=== PATIENT | female | born 1930 | race Caucasian/White ===

== ENCOUNTER 2018-10-10 13:25 | Inpatient (IN) | payer MEDICARE ==
[~2018-10-10] VITALS: Ht 152.4 cm; Wt 101.3 kg
[~2018-10-10 13:25] MED LIST: GLIM1TAB PO; LEVO175T2 PO; METO25TA35 PO; TRAM50TA2 PO
--- NOTE | 2018-10-10 13:30 | NUR ---
PT BIB [facility] AFTER PT BECAME NONVERBAL WITH RIGHT SIDED NEGLECT PER STAFF. PT WAS GIVEN 5 MG OF VERSED CORRESPONDENT FOR SZ ACTIVITYLASTING ABOUT 30 SECONDS PER [facility]. PT TO CT FOR CODE NEURO AFTER DR. TOUSSAINT ASSESSED PT IN ROOM FOR POSSIBLE INTUBATION.
--- NOTE | 2018-10-10 13:50 | NUR ---
PT BACK FROM [facility], PT'S SON AT BEDSIDE AND COMMNETED PT HAD HX OF SZ ABOUT 8-10 YEARS AGO AND NOT PLACED ON ANY ANTI SEIZURE MEDEICATIONS. PT PLACED ON MONITOR AND GIVEN WARM BALNKETS. HOB AT 30 DEGREES.
[2018-10-10 13:51] LABS: MEAN CORPUSCULAR HEMOGLOBIN 24.6 pg (27.0-34.8); MEAN CORPUSCULAR HGB CONC 32.8 g/dL (32.4-35.8); MEAN CORPUSCULAR VOLUME 74.9 fL (80-100); MEAN PLATELET VOLUME 8.4 fL (7.4-10.4); PLATELET COUNT 297 x10^3/uL (130-400); RED BLOOD COUNT 5.74 x10^6/uL (3.82-5.3); RED CELL DISTRIBUTION WIDTH 26.6 % (9.6-15.2)
[2018-10-10 14:02] LABS: INTERNATIONAL NORMALIZED RATIO 0.95 (0.93-1.1); PROTHROMBIN TIME 10.1 Seconds (9.6-11.5)
[2018-10-10] MEDS ORDERED: OMNIPAQUE 350 MG/ML, 100ML BOTTLE ONE (14:05)
--- NOTE | 2018-10-10 14:19 | NUR ---
BP 195/121. DR. TOUSSAINT AWARE OF BP.
[2018-10-10 14:22] LABS: BASOPHILS # (AUTO) 0.05 x10^3/uL (0-0.1); BASOPHILS % (AUTO) 0 % (0-1); EOSINOPHILS # (AUTO) 0.16 x10^3/uL (0-0.4); EOSINOPHILS % (AUTO) 1 % (1-7); LYMPHOCYTES # (AUTO) 3.31 x10^3/uL (1-3.4); LYMPHOCYTES % (AUTO) 30 % (22-44); MD MORPH REVIEW ONLY; MONOCYTES # (AUTO) 0.31 x10^3/uL (0.2-0.8); MONOCYTES % (AUTO) 3 % (2-9); NEUTROPHILS # (AUTO) 7.16 x10^3/uL (1.8-6.8); NEUTROPHILS % (AUTO) 65 % (42-75)
[2018-10-10 14:24] LABS: ANISOCYTOSIS 2+
[2018-10-10 14:25] LABS: <PLATELET ESTIMATE> ADEQUATE; <PLT MORPHOLOGY> NORMAL PLT MORPH; MICROCYTOSIS 1+; OVALOCYTES 1+; POLYCHROMASIA 1+
[2018-10-10] MEDS ORDERED: LABETALOL 5MG/ML, 20ML IVPush ONE (14:30)
[2018-10-10] MEDS ORDERED: LEVETIRACETAM 1,000 MG in SODIUM CHLORIDE 0.9% 100 ML IV ONE (14:30)
[2018-10-10 14:32] LABS: FREE T4 (FREE THYROXINE) 0.88 ng/dL (0.76-1.46)
[2018-10-10] MEDS ORDERED: LORazepam 2 MG/ML, 1ML ONE (14:37)
--- NOTE | 2018-10-10 14:37 | NUR ---
PT HAS EYES OPEN WITH BOTH EYES TWITCHING. PT BEGAN TO MOVE ALL EXTREMITIES MINIMALLY. DR. TOUSSAINT AT BEDSIDE AND ATIVAN TO BE GIVEN.
--- NOTE | 2018-10-10 14:50 | NUR ---
PT SNORING AFTER ATIVAN. O2 SAT IS 95% ON NRB AT [address] TOUSSAINT PT WILL BE INTUBATED IF O2 SAT DROPS.
[2018-10-10] MEDS ORDERED: LORazepam 2 MG/ML, 1ML IVPush ONE (15:00)
[2018-10-10] MEDS ORDERED: LEVO200T5 PO (15:16)
[2018-10-10] MEDS ORDERED: SODIUM CHLORIDE FLUSH 10ML SYR IVF PRN (15:30)
--- NOTE | 2018-10-10 15:31 | NUR ---
DR. CERDA AT BEDSIDE. BP 181/110. MORE LABETALOL REQUESTED OF DR. TOUSSAINT.
--- NOTE | 2018-10-10 15:40 | NUR ---
PT MOVING RIGHT ARM ATTEMPTING TO REMOVE NRB MASK. NPA REMOVED FROM LEFT NARE. PT TOLERATED WELL.
--- NOTE | 2018-10-10 15:45 | NUR ---
PER DR. CERDA NO ORDERS NEEDED TO BE COMPLETED PRIOR TO TRANSPORT TO CCU. PER DR. TOUSSAINT BP DID NOT NEED TO BE TREATED PRIOR TO TRANSPORT TO CCU.
[2018-10-10] MEDS ORDERED: ENALAPRILAT 1.25 MG/ML, 2ML IVPush PRN (16:00)
[2018-10-10] MEDS ORDERED: ACETAMINOPHEN 325 MG TABLET PO PRN (16:00)
[2018-10-10] MEDS ORDERED: BISACODYL 10 MG SUPP PR PRN (16:00)
[2018-10-10] MEDS ORDERED: ONDANSETRON 2MG/ML, 2ML IVPush PRN (16:00)
[2018-10-10] MEDS ORDERED: POLYETHYLENE GLYCOL 17 GM PACKET PO PRN (16:00)
[2018-10-10] MEDS ORDERED: LABETALOL 5MG/ML, 20ML IVPush PRN (16:00)
[2018-10-10] MEDS ORDERED: ONDANSETRON ODT 4 MG PO PRN (16:00)
[2018-10-10] MEDS: SODIUM CHLORIDE 0.9% 1,000 ML IV SCH (16:41)
[2018-10-10] MEDS: CEFTRIAXONE PMX 1GM/50ML 50 ML IV SCH (16:42)
[2018-10-10] MEDS ORDERED: LEVOTHYROXINE 100 MCG INJ IVPush ONE (17:00)
[2018-10-10] MEDS: ENOXAPARIN 30 MG/0.3 ML SQ SCH (17:19)
[2018-10-10] MEDS: INSULIN LISPRO 100 UNITS/ML, PEN SQ-INSULIN SCH ×2 (17:20→22:14)
[2018-10-10] MEDS: DOXYCYCLINE 100 MG in DEXTROSE 5% 250 ML IV SCH (17:20)
[2018-10-10 17:29] LABS: MICROSCOPIC INDICATED
[2018-10-10 17:59] LABS: CULTURE INDICATED? NO
[2018-10-10] MEDS ORDERED: METF500T17 PO (18:11)
[2018-10-10] MEDS ORDERED: CHOL-6 PO (18:11)
[2018-10-10] MEDS ORDERED: LISI10TA2 PO (18:11)
[2018-10-10 18:19] VITALS: BP 167/93
[2018-10-11] MEDS: SODIUM CHLORIDE 0.9% 1,000 ML IV SCH ×2 (01:34→13:09)
[2018-10-11] MEDS: ENOXAPARIN 30 MG/0.3 ML SQ SCH ×2 (04:16→16:28)
[2018-10-11] MEDS: DOXYCYCLINE 100 MG in DEXTROSE 5% 250 ML IV SCH ×2 (04:16→19:48)
[2018-10-11 04:29] LABS: ALANINE AMINOTRANSFERASE 12 U/L (12-78); ALBUMIN 2.7 g/dL (3.4-5.0); ANION GAP 7 mmol/L (5-15); CALCIUM 7.5 mg/dL (8.5-10.1); CHLORIDE 106 mmol/L (98-107); CREATININE 1.03 mg/dL (0.55-1.02)
[2018-10-11 04:30] VITALS: BP 97/52
[2018-10-11 04:32] LABS: ALKALINE PHOSPHATASE 70 U/L (45-117); BILIRUBIN,TOTAL 0.6 mg/dL (0.2-1.0); TOTAL PROTEIN 5.9 g/dL (6.4-8.2)
[2018-10-11 04:36] LABS: MEAN CORPUSCULAR HEMOGLOBIN 24.6 pg (27.0-34.8); MEAN CORPUSCULAR HGB CONC 32.8 g/dL (32.4-35.8); MEAN CORPUSCULAR VOLUME 75.1 fL (80-100); MEAN PLATELET VOLUME 8.5 fL (7.4-10.4); PLATELET COUNT 270 x10^3/uL (130-400); RED BLOOD COUNT 4.66 x10^6/uL (3.82-5.3); RED CELL DISTRIBUTION WIDTH 27.3 % (9.6-15.2)
[2018-10-11 05:09] LABS: BASOPHILS # (AUTO) 0.05 x10^3/uL (0-0.1); BASOPHILS % (AUTO) 1 % (0-1); EOSINOPHILS # (AUTO) 0.08 x10^3/uL (0-0.4); EOSINOPHILS % (AUTO) 1 % (1-7); LYMPHOCYTES % (AUTO) 31 % (22-44); MD MORPH REVIEW ONLY; MONOCYTES # (AUTO) 0.67 x10^3/uL (0.2-0.8); MONOCYTES % (AUTO) 6 % (2-9); NEUTROPHILS # (AUTO) 6.71 x10^3/uL (1.8-6.8); NEUTROPHILS % (AUTO) 62 % (42-75)
[2018-10-11 05:10] LABS: <PLATELET ESTIMATE> ADEQUATE; <PLT MORPHOLOGY> NORMAL PLT MORPH; ANISOCYTOSIS 1+; MICROCYTOSIS 1+; OVALOCYTES 1+; POLYCHROMASIA 1+
[2018-10-11] MEDS: INSULIN LISPRO 100 UNITS/ML, PEN SQ-INSULIN SCH ×4 (07:00→21:37)
[2018-10-11] MEDS: SENNA/DOCUSATE TABLET PO SCH (07:22)
[2018-10-11] MEDS: LEVETIRACETAM 1,000 MG in SODIUM CHLORIDE 0.9% 100 ML IV SCH ×2 (07:37→21:37)
[2018-10-11] MEDS: LEVOTHYROXINE 100 MCG INJ IVPush SCH (07:55)
[2018-10-11] MEDS: INSULIN GLARGINE 100 UNITS/ML, PEN SQ-INSULIN SCH ×2 (09:00→21:37)
--- NOTE | 2018-10-11 11:23 | NUR ---
REC: regular NCS diet with thin liquids Addendum: 10/11/18 at 1123 by Gissel LOPEZ Amended: Links added.
[2018-10-11 11:51] VITALS: BP 164/80
[2018-10-11 12:41] VITALS: BP 158/87
[2018-10-11] MEDS: CEFTRIAXONE PMX 1GM/50ML 50 ML IV SCH (18:36)
[2018-10-11 19:23] VITALS: BP 143/80
[2018-10-12 02:00] VITALS: BP 114/68
[2018-10-12] MEDS: SODIUM CHLORIDE 0.9% 1,000 ML IV SCH ×2 (02:08→15:58)
[2018-10-12] MEDS: ENOXAPARIN 30 MG/0.3 ML SQ SCH (04:24)
[2018-10-12 06:54] VITALS: BP 154/96
[2018-10-12] MEDS: LEVETIRACETAM 1,000 MG in SODIUM CHLORIDE 0.9% 100 ML IV SCH (08:32)
[2018-10-12] MEDS: SENNA/DOCUSATE TABLET PO SCH (08:37)
[2018-10-12] MEDS: LEVOTHYROXINE 100 MCG INJ IVPush SCH (08:38)
[2018-10-12] MEDS: INSULIN LISPRO 100 UNITS/ML, PEN SQ-INSULIN SCH ×3 (08:38→16:00)
[2018-10-12] MEDS: DOXYCYCLINE 100 MG in DEXTROSE 5% 250 ML IV SCH (08:52)
[2018-10-12] MEDS: INSULIN GLARGINE 100 UNITS/ML, PEN SQ-INSULIN SCH (11:31)
[2018-10-12] MEDS ORDERED: LEVE500T53 PO (11:46)
[2018-10-12 13:25] LABS: FREE T4 (FREE THYROXINE) 0.96 ng/dL (0.76-1.46); THYROID STIMULATING HORMONE 31.4 mIU/L (0.358-3.740)
[2018-10-12] MEDS ORDERED: DOXY100T PO (14:14)
[2018-10-12] MEDS ORDERED: CEFD300C37 PO (14:14)
[2018-10-12] MEDS ORDERED: GADOBUTROL 10 MMOL/10 ML PFS ONE (16:14)
[2018-10-12] MEDS: CEFTRIAXONE PMX 1GM/50ML 50 ML IV SCH (17:30)
[2018-10-13] MEDS ORDERED: ENOXAPARIN 30 MG/0.3 ML SQ SCH (04:00)
== END 2018-10-12 19:01 | disposition home or self-care (01) | DRG 100 ==
LOC: MERGE 13:25 → EDBD 13:25 → ED 14:30 → EDIP 15:09 → CCU 15:52 → 4WST 10-11 11:35
PROVIDERS: ADMIT Internal Medicine; ATTEND Internal Medicine
PROC: 0T9B70Z Drainage of Bladder with Drainage Device, Via Natural or Artificial Opening (ICD-10-PCS; principal; 2018-10-10)
DX: G40.901 Epilepsy, unspecified, not intractable, with status epilepticus (principal); J18.1 Lobar pneumonia, unspecified organism; E03.5 Myxedema coma; J96.00 Acute respiratory failure, unspecified whether with hypoxia or hypercapnia; E87.1 Hypo-osmolality and hyponatremia; R47.01 Aphasia; E03.9 Hypothyroidism, unspecified; G90.8 Other disorders of autonomic nervous system; E11.9 Type 2 diabetes mellitus without complications; G93.89 Other specified disorders of brain; I10 Essential (primary) hypertension; I65.02 Occlusion and stenosis of left vertebral artery; I65.21 Occlusion and stenosis of right carotid artery; Z66 Do not resuscitate; Z85.850 Personal history of malignant neoplasm of thyroid; Z86.73 Personal history of transient ischemic attack (TIA), and cerebral infarction without residual deficits; Z90.49 Acquired absence of other specified parts of digestive tract; Z91.14 Patient's other noncompliance with medication regimen; Z91.19 Patient's noncompliance with other medical treatment and regimen; Z79.899 Other long term (current) drug therapy
CPT/HCPCS: 36415; 36600; 70450; 70496; 70498; 70553; 71045; 80047; 80053; 81001; 82533; 82728; 82803; 82962; 83540; 83550; 83735; 84100; 84439; 84443; 84481; 84484; 85025; 85610; 85730; 87040; 87081; 93005; 95819; 96374; 96375; 99291; 99292; A9585; G0378; J0696; J1650; J1953; J7060; Q9967; J1815; J2060; J7030

== ENCOUNTER 2018-10-16 03:56 | Emergency (ER) | payer MEDICARE ==
[~2018-10-16] VITALS: Ht 157.5 cm; Wt 100.0 kg
[~2018-10-16 03:56] MED LIST changes: +CEFD300C37 PO; +CHOL-6 PO; +DOXY100T PO; +LEVE500T53 PO; +LEVO200T5 PO; +LISI10TA2 PO; +METF500T17 PO
--- NOTE | 2018-10-16 04:29 | NUR ---
88 Y/O FEMALE BIB [facility] FOR SUDDEN ONSET OF DIZZINESS. PT STATES SHE WOKE UP AND BECAME DIZZY, DESCRIBED IT "ROOM IS SPINNING". DENIED ANY N/V, SOB, CHEST PAIN. PT DENIES ANY COMPLAINTS UPON ARRIVAL TO THE ER. SHE IS ALERT AND ORIENTED, GCS OF 15. EKG COMPLETE, MONITORING EQUIPMENT APPLIED. ALL VITALS STABLE. NSR ON THE MONITOR. NO ECTOPY NOTED. HX OF HTN, HYPOTHYROIDISM, DIABETES. FSBS 113. PT DENIES ANY COMPLAINTS AT THIS TIME, WILL CONTINUE TO MONITOR.
[2018-10-16 05:31] LABS: ALBUMIN 3.4 g/dL (3.4-5.0); ANION GAP 6 mmol/L (5-15); CALCIUM 8.4 mg/dL (8.5-10.1); CHLORIDE 108 mmol/L (98-107)
[2018-10-16 05:35] LABS: CREATININE 1.01 mg/dL (0.55-1.02); T4 (THYROXINE) 11.9 mcg/dL (4.8-13.9); TROPONIN I < 0.015 ng/mL (0.000-0.045)
--- NOTE | 2018-10-16 06:00 | NUR ---
PT RESTING ON STRETCHER, NO DISTRESS NOTED, STATES NO LONGER DIZZY, DENIES ANY PAIN OR SOB. LAB AT FOR REDRAW
--- NOTE | 2018-10-16 06:25 | NUR ---
ROAD TESTED PT, STATED SHE FELT LIKE HER LEGS MIGHT GIVE OUT, FELT BETTER WHEN BACK ON STRETCHER. UPDATED
[2018-10-16 06:26] LABS: MEAN CORPUSCULAR HEMOGLOBIN 24.6 pg (27.0-34.8); MEAN CORPUSCULAR HGB CONC 32.5 g/dL (32.4-35.8); MEAN CORPUSCULAR VOLUME 75.8 fL (80-100); MEAN PLATELET VOLUME 8.1 fL (7.4-10.4); PLATELET COUNT 273 x10^3/uL (130-400); RED BLOOD COUNT 4.72 x10^6/uL (3.82-5.3)
[2018-10-16] MEDS ORDERED: ASPIRIN 81 MG TABLET CHEW PO ONE (06:30)
[2018-10-16] MEDS ORDERED: ASPIRIN 81 MG TABLET CHEW ONE ×2 (06:35→06:37)
[2018-10-16 07:36] LABS: MD MORPH REVIEW ONLY
[2018-10-16 07:37] LABS: BASOPHILS # (AUTO) 0.02 x10^3/uL (0-0.1); BASOPHILS % (AUTO) 0 % (0-1); EOSINOPHILS # (AUTO) 0.15 x10^3/uL (0-0.4); EOSINOPHILS % (AUTO) 2 % (1-7); LYMPHOCYTES # (AUTO) 1.92 x10^3/uL (1-3.4); LYMPHOCYTES % (AUTO) 23 % (22-44); MONOCYTES # (AUTO) 0.34 x10^3/uL (0.2-0.8); MONOCYTES % (AUTO) 4 % (2-9); NEUTROPHILS # (AUTO) 6.07 x10^3/uL (1.8-6.8); NEUTROPHILS % (AUTO) 72 % (42-75)
[2018-10-16 07:38] LABS: ANISOCYTOSIS 2+; MICROCYTOSIS 1+; POLYCHROMASIA 1+
[2018-10-16 07:39] LABS: OVALOCYTES 1+; SCHISTOCYTES 1+
[2018-10-16 07:40] LABS: <PLATELET ESTIMATE> ADEQUATE; <PLT MORPHOLOGY> NORMAL PLT MORPH; HYPOCHROMIA 1+
--- NOTE | 2018-10-16 08:07 | NUR ---
PT RESTING WAITING ON SON TO FREEZER ASSISTANT
[2018-10-16 08:18] VITALS: BP 159/81
== END 2018-10-16 10:29 | disposition home or self-care (01) ==
LOC: EDBD 03:56 → ED 06:36
DX: R42 Dizziness and giddiness (principal); E03.9 Hypothyroidism, unspecified; E07.9 Disorder of thyroid, unspecified; E11.9 Type 2 diabetes mellitus without complications; I10 Essential (primary) hypertension
CPT/HCPCS: 36415; 71045; 80048; 82040; 84436; 84443; 84484; 85025; 93005; 99284

== ENCOUNTER 2019-12-21 09:15 | Observation (INO) | payer MEDICARE ==
[~2019-12-21] VITALS: Ht 157.5 cm; Wt 84.0 kg
--- NOTE | 2019-12-21 09:20 | NUR ---
pt son: Avtar Jaramillo [phone]
[2019-12-21 10:08] LABS: BASOPHILS % (AUTO) 0 % (0-1); EOSINOPHILS % (AUTO) 1 % (1-7); LYMPHOCYTES # (AUTO) 1.27 x10^3/uL (1-3.4); LYMPHOCYTES % (AUTO) 16 % (22-44); MD NO; MEAN CORPUSCULAR HEMOGLOBIN 25.1 pg (27.0-34.8); MEAN CORPUSCULAR HGB CONC 31.8 g/dL (32.4-35.8); MEAN CORPUSCULAR VOLUME 78.8 fL (80-100); MEAN PLATELET VOLUME 8.8 fL (7.4-10.4); MONOCYTES # (AUTO) 0.18 x10^3/uL (0.2-0.8); MONOCYTES % (AUTO) 2 % (2-9); NEUTROPHILS # (AUTO) 6.63 x10^3/uL (1.8-6.8); NEUTROPHILS % (AUTO) 81 % (42-75); PLATELET COUNT 240 x10^3/uL (130-400); RED BLOOD COUNT 5.83 x10^6/uL (3.82-5.3); RED CELL DISTRIBUTION WIDTH 20.8 % (9.6-15.2)
--- NOTE | 2019-12-21 10:09 | NUR ---
UA COLLECTED VIA SC WITH TECH ASSIST. LABELED AND SENT TO LAB. PT TOLERATED WELL.
[2019-12-21 10:15] LABS: MICROSCOPIC NOT IND
[2019-12-21 10:18] LABS: ALANINE AMINOTRANSFERASE 15 U/L (12-78); ALBUMIN 3.7 g/dL (3.4-5.0); ANION GAP 10 mmol/L (5-15); CALCIUM 8.9 mg/dL (8.5-10.1); CHLORIDE 113 mmol/L (98-107); CREATININE 1.67 mg/dL (0.55-1.02)
[2019-12-21 10:19] LABS: CULTURE INDICATED? NO
[2019-12-21 10:20] LABS: ALKALINE PHOSPHATASE 71 U/L (45-117); BILIRUBIN,TOTAL 0.7 mg/dL (0.2-1.0); TOTAL PROTEIN 7.5 g/dL (6.4-8.2)
--- NOTE | 2019-12-21 10:27 | NUR ---
PT IS UNABLE TO VERIFY MED LIST. RUTHY CARLSON CALLED AND MESSAGE LEFT.
--- NOTE | 2019-12-21 13:00 | NUR ---
SPOKE WITH PT'S SON WITH HER PERMISSION. ADVISED PT WOULD BE ADMITTED TO HOSPITAL.
--- NOTE | 2019-12-21 13:44 | NUR ---
PT PLACED ON HOSPITAL BED AWAITING RM ON TELE FLOOR.
--- NOTE | 2019-12-21 15:04 | NUR ---
BREAK RN: REPORT TO TELE 2, PT TO ROOM VIA HOSPITAL BED
[2019-12-21 15:19] VITALS: BP 125/74
[2019-12-21] MEDS: INSULIN LISPRO 100 UNITS/ML, PEN SQ-INSULIN SCH ×2 (16:00→21:55)
[2019-12-21] MEDS ORDERED: SODIUM CHLORIDE 0.9% 1,000 ML IV SCH (16:00)
[2019-12-21] MEDS: HEPARIN 5,000 UNITS/ML, 1ML SQ SCH (16:32)
[2019-12-21 17:04] VITALS: BP 148/93
[2019-12-21 17:06] VITALS: BP 133/84
[2019-12-21 17:12] VITALS: BP 122/78
[2019-12-21] MEDS ORDERED: AMLO10TA8 PO (17:58)
[2019-12-21] MEDS ORDERED: HYDR25TA6 PO (17:59)
[2019-12-21 18:23] LABS: TROPONIN I < 0.015 ng/mL (0.000-0.045)
[2019-12-21 20:48] VITALS: BP 130/79
[2019-12-21] MEDS: METOPROLOL TARTRATE 25 MG TAB PO SCH (21:54)
[2019-12-21] MEDS: LEVETIRACETAM 500 MG TABLET PO SCH (21:54)
[2019-12-21 23:59] VITALS: BP_SYST 126; BP_SYST 136; BP_SYST 139; BP_DIAS 80; BP_DIAS 85; BP_DIAS 88
[2019-12-22] MEDS: HEPARIN 5,000 UNITS/ML, 1ML SQ SCH ×3 (00:09→15:39)
[2019-12-22 00:39] LABS: TROPONIN I < 0.015 ng/mL (0.000-0.045)
[2019-12-22] MEDS: LEVOTHYROXINE 100 MCG TABLET PO SCH (05:34)
[2019-12-22 06:14] LABS: ALBUMIN 3.1 g/dL (3.4-5.0); ANION GAP 6 mmol/L (5-15); CALCIUM 8.7 mg/dL (8.5-10.1); CHLORIDE 113 mmol/L (98-107)
[2019-12-22 06:18] LABS: ALANINE AMINOTRANSFERASE 14 U/L (12-78); ALKALINE PHOSPHATASE 57 U/L (45-117); BILIRUBIN,TOTAL 0.8 mg/dL (0.2-1.0); TOTAL PROTEIN 6.4 g/dL (6.4-8.2)
[2019-12-22 06:21] LABS: BASOPHILS # (AUTO) 0.01 x10^3/uL (0-0.1); BASOPHILS % (AUTO) 0 % (0-1); EOSINOPHILS % (AUTO) 3 % (1-7); LYMPHOCYTES # (AUTO) 1.69 x10^3/uL (1-3.4); LYMPHOCYTES % (AUTO) 29 % (22-44); MD NO; MEAN CORPUSCULAR HEMOGLOBIN 24.8 pg (27.0-34.8); MEAN CORPUSCULAR HGB CONC 31.6 g/dL (32.4-35.8); MEAN CORPUSCULAR VOLUME 78.4 fL (80-100); MEAN PLATELET VOLUME 8.9 fL (7.4-10.4); MONOCYTES # (AUTO) 0.38 x10^3/uL (0.2-0.8); MONOCYTES % (AUTO) 7 % (2-9); NEUTROPHILS # (AUTO) 3.51 x10^3/uL (1.8-6.8); NEUTROPHILS % (AUTO) 61 % (42-75); PLATELET COUNT 224 x10^3/uL (130-400); RED BLOOD COUNT 5.17 x10^6/uL (3.82-5.3); RED CELL DISTRIBUTION WIDTH 21.7 % (9.6-15.2)
[2019-12-22 06:38] VITALS: BP 122/77
[2019-12-22 06:40] VITALS: BP 113/75
[2019-12-22 06:42] VITALS: BP 121/79
[2019-12-22] MEDS: INSULIN LISPRO 100 UNITS/ML, PEN SQ-INSULIN SCH ×4 (07:00→21:00)
[2019-12-22] MEDS: LEVETIRACETAM 500 MG TABLET PO SCH ×2 (07:30→21:12)
[2019-12-22] MEDS: METOPROLOL TARTRATE 25 MG TAB PO SCH ×2 (07:31→21:12)
[2019-12-22 13:00] VITALS: BP 110/70
[2019-12-22 18:31] VITALS: BP 106/71
[2019-12-22 21:15] VITALS: BP 122/79
[2019-12-23 00:35] VITALS: BP 144/81
[2019-12-23] MEDS: HEPARIN 5,000 UNITS/ML, 1ML SQ SCH ×3 (00:44→15:56)
[2019-12-23] MEDS: LEVOTHYROXINE 100 MCG TABLET PO SCH (05:55)
[2019-12-23] MEDS: INSULIN LISPRO 100 UNITS/ML, PEN SQ-INSULIN SCH ×3 (07:00→15:56)
[2019-12-23 07:30] VITALS: BP 137/80
[2019-12-23] MEDS: LEVETIRACETAM 500 MG TABLET PO SCH (08:37)
[2019-12-23] MEDS: METOPROLOL TARTRATE 25 MG TAB PO SCH (08:37)
[2019-12-23 12:44] VITALS: BP 130/85
== END 2019-12-23 16:35 ==
LOC: ED 10:08 → EDIP 11:40 → INTOOBSV 11:40 → 4WST 15:14
PROVIDERS: ADMIT Internal Medicine; ATTEND Internal Medicine
DX: R55 Syncope and collapse (principal); E86.0 Dehydration; N17.0 Acute kidney failure with tubular necrosis; N17.9 Acute kidney failure, unspecified; E11.649 Type 2 diabetes mellitus with hypoglycemia without coma; I12.9 Hypertensive chronic kidney disease with stage 1 through stage 4 chronic kidney disease, or unspecified chronic kidney disease; N18.9 Chronic kidney disease, unspecified; E66.9 Obesity, unspecified; E11.22 Type 2 diabetes mellitus with diabetic chronic kidney disease; I65.02 Occlusion and stenosis of left vertebral artery; I65.23 Occlusion and stenosis of bilateral carotid arteries; E03.9 Hypothyroidism, unspecified; Z79.84 Long term (current) use of oral hypoglycemic drugs; Z66 Do not resuscitate; Z79.899 Other long term (current) drug therapy; Z86.73 Personal history of transient ischemic attack (TIA), and cerebral infarction without residual deficits; Z91.14 Patient's other noncompliance with medication regimen
CPT/HCPCS: 36415; 70450; 71045; 72125; 80053; 81003; 82962; 83036; 84443; 84484; 85025; 93005; 93306; 93880; 96360; 96361; 96372; 97162; 97166; 99285; G0378; J1644; J1815; J7030

== ENCOUNTER 2020-01-02 09:58 | Emergency (ER) | payer MEDICARE ==
[~2020-01-02] VITALS: Ht 160 cm; Wt 86.0 kg
[~2020-01-02 09:58] MED LIST changes: +AMLO10TA8 PO; +HYDR25TA6 PO
--- NOTE | 2020-01-02 10:05 | NUR ---
BIB EMS FROM [facility] FOR NEW ONSET OF DIZZINESS THIS AM. PT DENIES CP OR SOB. NO COUGH. STATE "I AM SPINNING". DENIES ANY FALLS, N/V. A&OX4, SPEECH CLEAR. EKG COMPLETE. VSS. PT NOT IN DISTRESS.
--- NOTE | 2020-01-02 10:29 | NUR ---
SON JESUS CALLED FOR INFO. OK TO GIVE INFO. [phone]
[2020-01-02 10:50] LABS: BASOPHILS # (AUTO) 0.04 x10^3/uL (0-0.1); BASOPHILS % (AUTO) 1 % (0-1); EOSINOPHILS # (AUTO) 0.23 x10^3/uL (0-0.4); EOSINOPHILS % (AUTO) 3 % (1-7); LYMPHOCYTES # (AUTO) 2.38 x10^3/uL (1-3.4); LYMPHOCYTES % (AUTO) 32 % (22-44); MD NO; MEAN CORPUSCULAR HGB CONC 32.2 g/dL (32.4-35.8); MEAN CORPUSCULAR VOLUME 77.8 fL (80-100); MEAN PLATELET VOLUME 9.3 fL (7.4-10.4); MONOCYTES # (AUTO) 0.41 x10^3/uL (0.2-0.8); MONOCYTES % (AUTO) 6 % (2-9); NEUTROPHILS # (AUTO) 4.32 x10^3/uL (1.8-6.8); NEUTROPHILS % (AUTO) 59 % (42-75); PLATELET COUNT 251 x10^3/uL (130-400); RED BLOOD COUNT 5.55 x10^6/uL (3.82-5.3); RED CELL DISTRIBUTION WIDTH 21.1 % (9.6-15.2)
[2020-01-02 10:57] LABS: ALBUMIN 3.3 g/dL (3.4-5.0); ANION GAP 8 mmol/L (5-15); CALCIUM 8.6 mg/dL (8.5-10.1); CHLORIDE 108 mmol/L (98-107)
--- NOTE | 2020-01-02 11:01 | NUR ---
PT AMBULATED TO BATHROOM W SBA AND WALKER TO BATHROOM . PT MISSED HAT FOR UA.
[2020-01-02] MEDS ORDERED: SODIUM CHLORIDE 0.9% 1,000ML IVBOLUS ONE (11:30)
[2020-01-02] MEDS ORDERED: SODIUM CHLORIDE FLUSH 10ML SYR IVF ONE (11:30)
--- NOTE | 2020-01-02 12:00 | NUR ---
PT RESTING, NO FURTHER NEEDS. VSS.
--- NOTE | 2020-01-02 13:00 | NUR ---
PT EATING LUNCH. MEAL TRAY PROVIDED.
[2020-01-02 13:33] VITALS: BP 126/72
--- NOTE | 2020-01-02 13:33 | NUR ---
SON WILL PIPED POCKET MACHINE OPERATOR PT FOR DC HOME
--- NOTE | 2020-01-02 14:03 | NUR ---
Patient/Caregiver given discharge instructions and they have confirmed that they understand the instructions. Patient ambulatory with steady gait with walker. Son here to picking table worker.
== END 2020-01-02 14:04 ==
LOC: ED 10:18
DX: R42 Dizziness and giddiness (principal); E86.0 Dehydration; R53.1 Weakness; R94.31 Abnormal electrocardiogram [ECG] [EKG]; I10 Essential (primary) hypertension; E11.9 Type 2 diabetes mellitus without complications; E03.9 Hypothyroidism, unspecified
CPT/HCPCS: 36415; 80048; 82040; 85025; 93005; 96360; 96361; 99284; J7030

== ENCOUNTER 2021-03-03 17:24 | Inpatient (IN) | payer MEDICARE ==
[~2021-03-03] VITALS: Ht 165.1 cm; Wt 89.0 kg
[~2021-03-03 17:24] MED LIST changes: +AMLO-211 PO; -AMLO10TA8 PO; +LISI10TA19 PO; -LISI10TA2 PO
[2021-03-03] MEDS ORDERED: ONDANSETRON 2MG/ML, 2ML IVPush ONE (18:00)
[2021-03-03] MEDS ORDERED: MORPHINE SULFATE 4 MG/ML, 1ML IVPush PRN (18:00)
--- NOTE | 2021-03-03 18:00 | NUR ---
Pt presents from [facility] where she walks independently. Pt had a MGLF and denies hitting her head. Pt is A&Ox3, knows she's in the hospital and here for a fall but also denies all medical problems but presents with a list of medications she takes daily. Pt reports "burning pain" in R knee, denies need for pain meds.
--- NOTE | 2021-03-03 18:44 | NUR ---
Bedside report to KANE Hernandez. Son at bedside. Pt remains connected to all monitors. VSS.
--- NOTE | 2021-03-03 18:45 | NUR ---
BEDSIDE REPORT FROM TYREE RN, PT CARE TRANSFERRED AT THIS TIME. PT RESTING ON GURNEY, NAD, APPEARS COMFORTABLE, BED IN LOWEST, RAILS ENGAGED, CALL LIGHT ON LAP, DENIES ADDITIONAL QUESTIONS OR NEEDS AT THIS TIME. MONITORING IN PLACE. WCTM.
--- NOTE | 2021-03-03 19:45 | NUR ---
RN DISCUSSED WITH SON REGARDING KNEE IMMOBILIZER, SON CONCERNED REGARDING PTS ABILITY TO MOBILIZE WITH A KNEE WRAP. PT HAS NO CHANGE IN CONDITION AT THIS TIME, WCTM.
[2021-03-03] MEDS ORDERED: LISI-170 PO (19:53)
[2021-03-03] MEDS ORDERED: METF500T17 PO (19:53)
[2021-03-03] MEDS ORDERED: AMLODIPINE PO (19:53)
[2021-03-03] MEDS ORDERED: GLIM2TAB7 PO (19:53)
[2021-03-03] MEDS ORDERED: HYDR25TA6 PO (19:54)
--- NOTE | 2021-03-03 21:15 | NUR ---
PT TO BE ADMITTED TO HOSPITAL, SON AT BS, PT NAD, DENIES ADDITIONAL QUESTIONS OR NEEDS. Patient is resting comfortably in bed. Bed in lowest, rails engaged, call light on lap. Vital Signs within normal limits. WCTM.
[2021-03-03] MEDS ORDERED: morphine SULFATE 10 MG/ML, 1ML IVPush PRN (22:30)
[2021-03-03] MEDS ORDERED: MELATONIN 5 MG TABLET PO PRN (22:30)
[2021-03-03] MEDS ORDERED: POLYETHYLENE GLYCOL 17 GM PACKET PO PRN (22:30)
[2021-03-03] MEDS ORDERED: KETOROLAC 30 MG/1 ML IV PRN (22:30)
[2021-03-03] MEDS ORDERED: ONDANSETRON 2MG/ML, 2ML IVPush PRN (22:30)
--- NOTE | 2021-03-03 22:36 | NUR ---
PT ASSISTED ONTO BEDPAN TO URINATE. NAD, PT APPEARS TO BE IN GOOD SPIRITS AT THIS TIME. DENIES ADDITIONAL QUESTIONS OR NEEDS, WCTM. REPORT CALLED DAPHNE RN, PT CARE TO BE TRASNFERRED ON ARRIVAL TO THE FLOOR. Patient is resting comfortably in bed. Bed in lowest, rails engaged, call light on lap. WCTM.
[2021-03-03] MEDS ORDERED: ENOXAPARIN 40 MG/0.4 ML SQ SCH (23:30)
[2021-03-04 00:34] VITALS: BP 114/75
[2021-03-04 07:37] LABS: ANION GAP 6 mmol/L (5-15); CHLORIDE 107 mmol/L (98-107)
[2021-03-04 07:38] LABS: BASOPHILS % (AUTO) 0 % (0-1); EOSINOPHILS % (AUTO) 3 % (1-7); LYMPHOCYTES % (AUTO) 26 % (22-44); MEAN CORPUSCULAR HEMOGLOBIN 25.3 pg (27.0-34.8); MEAN PLATELET VOLUME 8.2 fL (7.4-10.4); MONOCYTES % (AUTO) 7 % (2-9); NEUTROPHILS % (AUTO) 64 % (42-75); PLATELET COUNT 218 x10^3/uL (130-400); RED BLOOD COUNT 5.34 x10^6/uL (3.82-5.3); RED CELL DISTRIBUTION WIDTH 19.9 % (9.6-15.2)
[2021-03-04 07:42] VITALS: BP 134/82
[2021-03-04 07:50] LABS: CALCIUM 9.5 mg/dL (8.5-10.1); CREATININE 1.22 mg/dL (0.55-1.02)
[2021-03-04] MEDS ORDERED: HYDROcodone/APAP 5/325 TABLET PO PRN (08:00)
[2021-03-04 14:15] VITALS: BP 128/64
[2021-03-04] MEDS: metFORMIN 500 MG TABLET PO SCH (17:11)
[2021-03-04 20:14] VITALS: BP 148/91
[2021-03-04] MEDS: LEVETIRACETAM 500 MG TABLET PO SCH (20:34)
[2021-03-04] MEDS: GLIMEPIRIDE 1 MG TABLET PO SCH (20:36)
[2021-03-04] MEDS: ENOXAPARIN 30 MG/0.3 ML SQ SCH (23:08)
[2021-03-05 02:47] VITALS: BP 127/73
[2021-03-05] MEDS: LEVOTHYROXINE 100 MCG TABLET PO SCH (05:22)
[2021-03-05 07:20] VITALS: BP 120/73
[2021-03-05] MEDS: GLIMEPIRIDE 1 MG TABLET PO SCH ×2 (09:19→20:35)
[2021-03-05] MEDS: LEVETIRACETAM 500 MG TABLET PO SCH ×2 (09:20→20:35)
[2021-03-05] MEDS: metFORMIN 500 MG TABLET PO SCH (09:20)
[2021-03-05] MEDS: AMLODIPINE 5 MG TABLET PO SCH (09:20)
[2021-03-05] MEDS: LISINOPRIL 20 MG TABLET PO SCH (09:20)
[2021-03-05 14:35] VITALS: BP 132/69
[2021-03-05 19:18] VITALS: BP 115/74
[2021-03-05 19:21] VITALS: BP 131/74
[2021-03-05 19:24] VITALS: BP 96/65
[2021-03-05] MEDS: ENOXAPARIN 30 MG/0.3 ML SQ SCH (23:24)
[2021-03-06 00:20] VITALS: BP 100/53
[2021-03-06] MEDS: LEVOTHYROXINE 100 MCG TABLET PO SCH (06:12)
[2021-03-06 06:58] VITALS: BP 108/61
[2021-03-06 08:35] VITALS: BP 113/77
[2021-03-06] MEDS: AMLODIPINE 5 MG TABLET PO SCH (08:36)
[2021-03-06] MEDS: GLIMEPIRIDE 1 MG TABLET PO SCH (08:36)
[2021-03-06] MEDS: LISINOPRIL 20 MG TABLET PO SCH (08:37)
[2021-03-06] MEDS: LEVETIRACETAM 500 MG TABLET PO SCH (08:37)
[2021-03-06] MEDS: ACETAMINOPHEN 325 MG TABLET PO PRN ×2 (10:50→16:21)
[2021-03-06 12:36] VITALS: BP 112/77
[2021-03-06] MEDS ORDERED: AMLO-150 PO (15:02)
[2021-03-06] MEDS ORDERED: ACET325T26 PO (15:02)
== END 2021-03-06 16:40 | DRG 914 ==
LOC: ED 20:04 → EDIP 23:03 → 4NE 23:04
PROVIDERS: ADMIT Internal Medicine; ATTEND Internal Medicine
DX: S89.91XA Unspecified injury of right lower leg, initial encounter (principal); G40.919 Epilepsy, unspecified, intractable, without status epilepticus; E66.9 Obesity, unspecified; Z66 Do not resuscitate; E03.9 Hypothyroidism, unspecified; E11.9 Type 2 diabetes mellitus without complications; F03.90 Unspecified dementia, unspecified severity, without behavioral disturbance, psychotic disturbance, mood disturbance, and anxiety; I10 Essential (primary) hypertension; W18.39XA Other fall on same level, initial encounter; Y93.89 Activity, other specified; Y92.89 Other specified places as the place of occurrence of the external cause; Y99.8 Other external cause status; Z79.899 Other long term (current) drug therapy; Z79.891 Long term (current) use of opiate analgesic; Z86.73 Personal history of transient ischemic attack (TIA), and cerebral infarction without residual deficits; Z79.01 Long term (current) use of anticoagulants; Z90.49 Acquired absence of other specified parts of digestive tract; Z79.84 Long term (current) use of oral hypoglycemic drugs; Z68.32 Body mass index [BMI] 32.0-32.9, adult
CPT/HCPCS: 36415; 72170; 80048; 84443; 85025; 96372; 99285; G0378; J1650